=== PATIENT | female | born 1975 | race Caucasian/White ===

== ENCOUNTER 2021-03-25 08:37 | Outpatient (CLI) | payer MEDICAID, SELFPAY ==
[2021-03-25 08:44] VITALS: BP 116/71; PULSE 58; RESP 18; TEMP 36.9; O2SAT 100
[2021-03-25] MEDS: Omnipaque 240 MG/ML 50 ML BTL IJ (09:25)
[2021-03-25] MEDS: Bupivacaine 0.5% Pres-Free 10 ML VIAL IJ (09:25)
--- NOTE | 2021-03-25 09:29 | PDOC.PAIN_ITS ---
Pain Clinic Procedure Note Procedure Note Procedure Note: Lumbar/Sacral Medial Branch Blocks ZBIGNIEW NUNES has been referred to the [facility] for lumbar/sacral medial branch blocks. Pre-operative diagnosis: lumbar spondylosis Post-operative diagnosis: same as above COMMENTS: patient has axial back pain and some intermittent radiation down right anterior thigh. she was evaluated by Ms Nella Nevarez APRN in pain clinic and referred for diagnostic lumbar medial branch nerve block. Patient was interviewed and the medical record reviewed. There were no medical, pharmacologic, radiographic or other structural contraindications to attempting fluoroscopically guided local anesthetic lumbar/sacral medial branch blocks. Risks and expected side effects as well as potential benefit of the procedure were reviewed and voiced concerns addressed. The printed consent form was signed and witnessed. Standard time-out procedure was performed. Patient was placed in the prone position on the fluoroscopy table and automated blood pressure cuff and pulse oximeter applied. The skin entry points for approaching the anatomic target points of the segmental medial branches of bilateral L3, L4, L5-DR were identified with anfluoroscopy and marked. Following thorough Chlorhexadine preparation of the skin and draping and 1% lidocaine infiltration of the skin entry points and subcutaneous tissues, a 22 gauge spinal needle was placed under fluoroscopic guidance down on to the target point for each respective segmental medial branch.Position was confirmed in A/P, oblique and lateral views with 0.25ml of omnipaque 240. Coult be this method .5ml 0.5% Bupivacaine was injected . Vital signs were stable throughout the procedure and were as recorded in the docflowsheet by the nursing staff. Follow up plans and appointments were discussed and was instructed to keep careful note of how the usual pain was modified by these injections. Specifically was asked to keep a pain diary for the next 24 hours using a numeric pain scale of 0-10 and report these results at the follow-up visit. Post procedure instruction was given as documented in the nursing documentation and having met discharge criteria. Patient was discharged from the [facility]. Based on the medial branches blocked today, if the patient has adequate relief and we are able to proceed to radiofrequency ablation, the treatment should result in the denervation of the bilateral L4/5 and L5/S1. We would expect to denervate a total of 4 facets during the radiofrequency ablation. COMMENTS: VAS score 8 out of 10 pre-procedure and 7 out of 10 post-procedure. Maryellen Del Valle MD Pain Management CC: Juan Farr
--- NOTE | 2021-03-25 09:30 | DI.RAD_ITS ---
Exam(s) XR PAIN CLINIC LUMBAR SP 2V EXAM: XR PAIN CLINIC LUMBAR SP 2V CLINICAL HISTORY: Dx: Lumbar Spondylosis TECHNIQUE: 2D and realtime digital imaging was performed. CONTRAST MATERIAL: Refer to procedure report. COMPARISON: No exams were available for comparison FINDINGS: Fluoroscopy was provided for Dr. Del Valle during the performance of a lumbar medial branch block. Please refer to the procedure report for complete details. Ka,r=8.71 mGy IMPRESSION: RADIATION DOSE DELIVERED:
[2021-03-25 09:39] VITALS: BP 124/69; PULSE 61; RESP 14; O2SAT 100
== END 2021-03-25 08:38 | disposition home or self-care (01) ==
LOC: PC 08:37
PROVIDERS: PCP Internal Medicine; Visit Provider Internal Medicine
DX: M47.816 Spondylosis without myelopathy or radiculopathy, lumbar region (principal)
CPT/HCPCS: 64493; 64494; 72100; Q9967

== ENCOUNTER 2021-04-29 12:20 | Outpatient (CLI) | payer MEDICAID, SELFPAY ==
[2021-04-29 12:28] VITALS: PULSE 68; RESP 17; TEMP 37.3; O2SAT 99
--- NOTE | 2021-04-29 13:10 | DI.RAD_ITS ---
Exam(s) XR PAIN CLINIC LUMBAR SP 2V EXAM: XR PAIN CLINIC LUMBAR SP 2V CLINICAL HISTORY: Dx: Lumbar Spondylosis TECHNIQUE: 2D and realtime digital imaging was performed. CONTRAST MATERIAL: Refer to procedure report. COMPARISON: No exams were available for comparison FINDINGS: Fluoroscopy was provided for Dr. Del Valle during the performance of a lumbar medial branch block. Please refer to the procedure report for complete details. Ka,r=7.72 mGy IMPRESSION:
--- NOTE | 2021-04-29 13:17 | PDOC.PAIN_ITS ---
Pain Clinic Procedure Note Procedure Note Procedure Note: Lumbar/Sacral Medial Branch Blocks ZBIGNIEW NUNES has been referred to the [facility] for lumbar/sacral medial branch blocks. Pre-operative diagnosis: lumbar spondylosis Post-operative diagnosis: same as above COMMENTS: patient responded well to previous diagnostic lumbar medial branch nerve block. This is confirmatory medial branch nerve block. Patient was interviewed and the medical record reviewed. There were no medical, pharmacologic, radiographic or other structural contraindications to attempting fluoroscopically guided local anesthetic lumbar/sacral medial branch blocks. Risks and expected side effects as well as potential benefit of the procedure were reviewed and voiced concerns addressed. The printed consent form was signed and witnessed. Standard time-out procedure was performed. Patient was placed in the prone position on the fluoroscopy table and automated blood pressure cuff and pulse oximeter applied. The skin entry points for approaching the anatomic target points of the segmental medial branches of bilateral L3, L4, L5-DR were identified with anfluoroscopy and marked. Following thorough Chlorhexadine preparation of the skin and draping and 1% lidocaine infiltration of the skin e ntry points and subcutaneous tissues, a 22 gauge spinal needle was placed under fluoroscopic guidance down on to the target point for each respective segmental medial branch.Position was confirmed in A/P, oblique and lateral views with 0.25ml of omnipaque 240. Coult be this method .5ml 2% Lidocaine was injected. Vital signs were stable throughout the procedure and were as recorded in the docflowsheet by the nursing staff. Follow up plans and appointments were discussed and was instructed to keep careful note of how the usual pain was modified by these injections. Specifically was asked to keep a pain diary for the next 24 hours using a numeric pain scale of 0-10 and report these results at the follow-up visit. Post procedure instruction was given as documented in the nursing documentation and having met discharge criteria. Patient was discharged from the [facility]. Based on the medial branches blocked today, if the patient has adequate relief and we are able to proceed to radiofrequency ablation, the treatment should result in the denervation of the bilateral L4/5 and L5/S1. We would expect to denervate a total of 4 facets during the radiofrequency ablation. COMMENTS: VAS score 7 out of 10 pre-procedure and 5 out of 10 post-procedure. Maryellen Del Valle MD Pain Management CC: Juan Farr
[2021-04-29] MEDS: Omnipaque 240 MG/ML 50 ML BTL IJ (13:22)
[2021-04-29] MEDS: Lidocaine 2% Pres-Free 5 ML VIAL IJ (13:22)
[2021-04-29 13:23] VITALS: BP 111/70; PULSE 56; RESP 21; O2SAT 100
== END 2021-04-29 12:21 | disposition home or self-care (01) ==
PROVIDERS: PCP Family Medicine; Visit Provider Internal Medicine
DX: M47.816 Spondylosis without myelopathy or radiculopathy, lumbar region (principal)
CPT/HCPCS: 64493; 64494; 72100; Q9967

== ENCOUNTER 2021-06-10 12:51 | Outpatient (CLI) | payer MEDICAID, SELFPAY ==
--- NOTE | 2021-06-10 06:00 | DI.RAD_ITS ---
Exam(s) XR PAIN CLINIC LUMBAR SP 2V EXAM: XR PAIN CLINIC LUMBAR SP 2V CLINICAL HISTORY: DX: Lumbar Spondylosis. TECHNIQUE: Fluoroscopy was provided for the referring physician for guidance with performing injecti on procedure. COMPARISON: No exams were available for comparison FINDINGS: Please see procedure note for details. Fluoro time 85.3 seconds RADIATION DOSE DELIVERED: sejal Oliver=18.05 mGy
[2021-06-10 13:16] VITALS: BP 110/74; PULSE 57; RESP 14; TEMP 37.2; O2SAT 98
--- NOTE | 2021-06-10 13:32 | PDOC.PAIN_ITS ---
Pain Clinic Procedure Note Procedure Note Procedure Note: Bilateral Lumbar Radiofrequency with Coolief Machine PROCEDURE NOTE Date of Service: June 10, 2021 Patient: ZBIGNIEW NUNES Provider: Maryellen Del Valle MD Pre Operative Diagnosis: lumbar spondylosis Post Operative Diagnosis: same as above PROCEDURE: Radiofrequency Ablation of medial branches - bilateral L3, L4, L5-DR CHANDLERMELISSATEENA NUNES was brought into the fluoroscopy suite and positioned into the prone position on the fluoroscopy table and allowed to adjust to a position of comfort. A grounding pad was placed on the left thigh. The lumbar region was widely prepped with a chloraprep solution, allowed to air dry and draped in standard sterile surgical fashion. Local anesthesia was provided by 25mL of 1% lidocaine delivered with a 25g needle. A 17g 100mm radiofrequency introducer needle was placed to the planned anatomic targets guided with intermittent fluoroscopy with a perpendicular approach to terminally place at the junction of the superior articular process and the transverse process of the bilateral L3, L4, L5-DR and the base of the sacral ala on the bilateral for the L5 medial branch nerve. The stylets were removed and radiofrequency probes with a 4mm active tip were then inserted. Needle tip position of the probes was verified in the AP, oblique, and lateral views. At each site, the medial branch nerve was stimulated at 2 Hz to a maximum 1-2 volts determined to finalize safe needle and electrode placement. The patient was awake and responsive during this portion of the procedure. Each target was anesthetized with 2 mL of 2% lidocaine for anesthesia for lesioning and then each target was lesioned at 80 degrees Celsius for 2 minutes and 30 seconds. Tissue impedences were noted to be between 250 and 500 Ohms. Electrodes and needles were then removed and bandages placed over the needle placement sites, t he patient then returned to the supine position on a stretcher and transported to the recovery room without hemodynamic, neurologic, or allergic reactions. Fluoroscopic images were printed for hard copy recording and digitally archived. POST PROCEDURE EVALUATION: IMPRESSION: 1. during the right L3 and L4 testing, excellent multifus stimulation observed without any spread to right lower extremity, medial branch nerve was stimulated at 2Hz to maxium of 2 volts, patient denies any radiating right leg paresthesia or muscle twitching, then about 1 minute into the radiofrequency ablation, anne ent reported transient right lateral thigh pain which resolved within 30 seconds. 2. patient received 75mcg of IV fentanyl and 1.5mg of IV versed 3. post-lesioning, at each site, patient received 1cc of solution containing 0.3mg of 40mg/ml of depomedrol and 0.5% Bupivocaine 4. after completion of RFA, patient reports 10 out of 10 pain across her back - recommendation made to apply ice, a Rx for methocarbamol 500mg TID was sent to patient's preferred pharmacy 5. lengthy discussion with patient about post-RF discomfort, sunburn feeling across her back lasting for 4-6 weeks Follow up plans and appointments were discussed with the ZBIGNIEW . Post procedure instruction was given as documented in nursing documentation and having met discharge criteria, ZBIGNIEW was discharged from the [facility]. COMMENTS: No complications. F/U with our office as needed. I personally performed this entire procedure. Maryellen Del Valle MD Pain Management Attending Physician
[2021-06-10] MEDS: Lactated Ringers 1,000 ML 80 ML IV (13:42)
[2021-06-10] MEDS: fentaNYL 100 MCG/2 ML VIAL IVP ×3 (13:45→14:11)
[2021-06-10] MEDS: Midazolam 2 MG/2 ML VIAL IVP ×2 (13:46→14:05)
[2021-06-10 14:33] VITALS: BP 115/73; PULSE 55; RESP 13; O2SAT 100
[2021-06-10] MEDS: Lidocaine 2% Pres-Free 5 ML VIAL IJ (15:16)
[2021-06-10] MEDS: methylPREDNISolone ACETATE 40 MG/ML VIAL IJ (15:21)
[2021-06-10] MEDS: Lidocaine 1% Pres-Free 30 ML VIAL IJ (15:22)
[2021-06-10] MEDS: Bupivacaine 0.5% Pres-Free 10 ML VIAL IJ (15:22)
== END 2021-06-10 12:52 | disposition home or self-care (01) ==
LOC: PC 12:52
PROVIDERS: PCP Family Medicine; Visit Provider Internal Medicine
DX: M47.816 Spondylosis without myelopathy or radiculopathy, lumbar region (principal)
CPT/HCPCS: 64635; 64636; 72100; J1030; J2250; J3010

== ENCOUNTER 2022-03-25 07:26 | Outpatient (CLI) | payer MEDICAID, SELFPAY ==
--- NOTE | 2022-03-25 06:00 | DI.RAD_ITS ---
Exam(s) XR PAIN CLINIC LUMBAR SP 2V EXAM: XR PAIN CLINIC LUMBAR SP 2V CLINICAL HISTORY: Lumbar spondylosis. TECHNIQUE: Fluoroscopy was provided for the referring physician for guidance with performing pain cl inic injection procedure. COMPARISON: No exams were available for comparison FINDINGS: Please see procedure note for details. Fluoro time: 101.8 seconds RADIATION DOSE DELIVERED: sejal Oliver=20.0 mGy
[2022-03-25 07:43] VITALS: BP 103/64; PULSE 60; RESP 20; TEMP 36.8; O2SAT 98
[2022-03-25] MEDS: fentaNYL 100 MCG/2 ML VIAL IVP ×2 (08:24→08:43)
[2022-03-25] MEDS: Midazolam 2 MG/2 ML VIAL IVP (08:25)
[2022-03-25] MEDS: methylPREDNISolone ACETATE 40 MG/ML VIAL IJ (09:16)
[2022-03-25] MEDS: Lidocaine 2% Pres-Free 5 ML VIAL IJ (09:16)
[2022-03-25] MEDS: Bupivacaine 0.5% Pres-Free 10 ML VIAL IJ (09:16)
[2022-03-25 09:17] VITALS: BP 136/86; PULSE 68; RESP 16; O2SAT 99
--- NOTE | 2022-03-25 09:21 | PDOC.PAIN ---
Pain Clinic Procedure Note Procedure Note Procedure Note: Bilateral Lumbar Radiofrequency with Coolief Machine PROCEDURE NOTE Date of Service: March 25, 2022 Patient: ZBIGNIEW KIRKPATRICK Provider: Ti Noyola DO, MPH Pre Operative Diagnosis: Lumbosacral Spondylosis without Myelopathy Post Operative Diagnosis: Same Pre procedure pain; VAS= 8/10 PROCEDURE: Radiofrequency Ablation of medial branches - Bilateral L3 L4 L5 and lateral branches of bilateral S1. ZBIGNIEW KIRKPATRICK was brought into the fluoroscopy suite and positioned into the prone position on the fluoroscopy table and allowed to adjust to a position of comfort. A grounding pad was placed on the right thigh. The lumbar region was widely prepped with a chloraprep solution, allowed to air dry and draped in standard sterile surgical fashion. Local anesthesia was provided by 8 mL of 2% Lidocaine delivered with a 25g needle. A 17g 100 mm radiofrequency introducer needle was placed to the planned anatomic targets guided with intermittent fluoroscopy with a perpendicular approach to terminally place at the junction of the superior articular process and the transverse process of the bilateral L4 L5, the base of the sacral ala on the bilateral for the L5 medial branch nerve and the area between base of the sacral ala to the S1 foramen bilaterally. The stylets were removed and radiofrequency probes with a 4mm active tip were then inserted. Needle tip position of the probes was verified in the AP, oblique, and lateral views. At each site, the medial branch nerve was stimulated at 2 Hz to a maximum 1-2 volts determined to finalize safe needle and electrode placement. The patient was awake and responsive during this portion of the procedure. Each target was anesthetized with 1-2 mL of 2% Lidocaine for anesthesia for lesioning and then each target was lesioned at 80 degrees Celsius for 2 minutes and 30 seconds. Tissue impedences were noted to be between 250 and 500 Ohms. Electrodes and needles were then removed and bandages placed over the needle placement sites, the patient then returned to the supine position on a stretcher and transported to the recovery room without hemodynamic, neurologic, or allergic reactions. Fluoroscopic images were printed for hard copy recording and digitally archived. POST PROCEDURE EVALUATION: IMPRESSION: 1. Summary of procedure. Medication given is documented in the MAR. 2. The patient will be contacted in 1-3 weeks 3. Estimated Blood Loss: <5 mls 4. Fluoroscopy time: Documented in the EMR. Follow up plans and appointments were discussed with the ZBIGNIEW . Post procedure instruction was given as documented in nursing documentation and having met discharge criteria, ZBIGNIEW was discharged from the [facility]. COMMENTS: No apparent complications. Post-procedure pain: VAS= 4/10. F/U with our office as needed. I personally performed this entire procedure. Ti Noyola DO, MPH Attending Physician Pain Management
== END 2022-03-25 07:27 | disposition home or self-care (01) ==
PROVIDERS: PCP Family Medicine; Visit Provider Preventive Medicine Occupational Medicine
DX: M47.817 Spondylosis without myelopathy or radiculopathy, lumbosacral region (principal)
CPT/HCPCS: 64635 ×2; 64636; 72100; J1030; J2250; J3010

== ENCOUNTER 2023-05-12 09:31 | Outpatient (CLI) | payer MEDICAID, SELFPAY ==
--- NOTE | 2023-05-12 06:00 | DI.RAD_ITS ---
Exam(s) XR PAIN CLINIC LUMBAR SP 2V EXAM: XR PAIN CLINIC LUMBAR SP 2V CLINICAL HISTORY: Dx: Lumbar Spondylosis TECHNIQUE: 2D and realtime digital imaging was performed. CONTRAST MATERIAL: Refer to procedure report. COMPARISON: No exams were available for comparison FINDINGS: Fluoroscopy was provided for Dr. Noyola during the performance of a lumbar radiofrequency ablation. P lease refer to the procedure report for complete details. Ka,r=12.8 mGy IMPRESSION:
[2023-05-12 09:58] VITALS: BP 104/71; PULSE 79; RESP 20; TEMP 36.8; O2SAT 99
[2023-05-12] MEDS: Lactated Ringers 500 ML 80 ML IV (10:35)
[2023-05-12] MEDS: fentaNYL 100 MCG/2 ML VIAL IVP ×2 (10:35→10:45)
[2023-05-12] MEDS: Midazolam 2 MG/2 ML VIAL IVP (10:35)
[2023-05-12 11:10] VITALS: BP 102/76; PULSE 89; RESP 20; O2SAT 99
[2023-05-12] MEDS: Lidocaine 2% Pres-Free 5 ML VIAL IJ (11:24)
[2023-05-12] MEDS: methylPREDNISolone ACETATE 40 MG/ML VIAL IJ (11:26)
[2023-05-12] MEDS: Bupivacaine 0.5% Pres-Free 10 ML VIAL IJ (11:26)
--- NOTE | 2023-05-12 11:57 | PDOC.PAIN_ITS ---
Date of service: 05/12/23 Time of Service: 11:57 Pain Managment Procedure Note Procedure Note Procedure Note: PROCEDURE NOTE Lumbar Radiofrequency Ablation Bilateral Lumbar Radiofrequency with Avanos Machine Date of Service: May 12, 2023 Patient: ZBIGNIEW KIRKPATRICK Provider: Ti Noyola DO, MPH Pre Operative Diagnosis: Lumbosacral Spondylosis without Myelopathy Post Operative Diagnosis: Same Pre procedure pain; VAS= 8/10 Comment: She had her last RFA at these levels on 03/25/22 and had >8 months of >50% pain relief and improved functioning. PROCEDURE: Radiofrequency Ablation of medial branches - bilateral L3, L4, L5 and lateral branches of bilateral S1. ZBIGNIEW was brought into the fluoroscopy suite and positioned into the prone position on the fluoroscopy table and allowed to adjust to a position of comfort. A grounding pad was placed on the left abdomen. The lumbar region was widely prepped with a chloraprep solution, allowed to air dry and draped in standard sterile surgical fashion. Local anesthesia was provided by 5 mL of 2 % Lidocaine delivered with a 25g needle. A 17g 100 mm radiofrequency introducer needle was placed to the planned anatomic targets guided with intermittent fluoroscopy with a perpendicular approach to terminally place at the junction of the superior articular process and the transverse process of the bilateral L4, L5, the base of the sacral ala on the bilateral for the L5 medial branch nerve and the area between base of the sacral ala to the S1 foramen bilaterally. The stylets were removed and radiofrequency probes with a 4mm active tip were then inserted. Needle tip position of the probes was verified in the AP, oblique, and lateral views. At each site, the medial branch nerve was stimulated at 2 Hz to a maximum 1-2 volts determined to finalize safe needle and electrode placement. The patient was awake and responsive during this portion of the procedure. Each target was anesthetized with 1-2 mL of 2 % Lidocaine for anesthesia for lesioning and then each target was lesioned at 80 degrees Celsius for 2 minutes and 30 seconds. Tissue impedances were noted to be between 250 and 500 Ohms. Electrodes and needles were then removed and bandages placed over the needle placement sites, the patient was observed and was without hemodynamic, neurologic, or allergic reactions. Fluoroscopic images were digitally archived. POST PROCEDURE EVALUATION: IMPRESSION: 1. Summary of procedure. Medication given is documented in the MAR. 2. RTC as needed. Follow up plan: Patient to contact [facility] needed.? This procedure may be repeated if the patient achieves at least 50% improvement in pain/function for at least 6 months. 3. Estimated Blood Loss: <5 mls 4. Fluoroscopy time: Documented in the EMR. Follow up plans and appointments were discussed with the ZBIGNIEW. Post procedure instruction was given as documented in nursing documentation and having met discharge criteria, ZBIGNIEW was discharged from the [facility]. COMMENTS: No apparent complications. Post-procedure pain: VAS= 2/10. I personally completed the entire procedure. TI NOYOLA DO, MPH ABPM&R - Subspecialty board certification in Pain Medicine [facility] [facility]
== END 2023-05-12 09:32 | disposition home or self-care (01) ==
LOC: PC 09:31
PROVIDERS: PCP Family Medicine; Visit Provider Preventive Medicine Occupational Medicine
DX: M47.817 Spondylosis without myelopathy or radiculopathy, lumbosacral region (principal)
CPT/HCPCS: 64635; 64636; 72100; J1030; J2250; J3010

== ENCOUNTER 2024-01-26 12:39 | Outpatient (CLI) | payer MEDICAID, SELFPAY ==
--- NOTE | 2024-01-26 06:00 | DI.RAD_ITS ---
Exam(s) XR PAIN CLINIC LUMBAR SP 2V EXAM: XR PAIN CLINIC LUMBAR SP 2V CLINICAL HISTORY: DX: Bilateral Lumbar spondylosis. TECHNIQUE: Fluoroscopy was provided for the referring physician for guidance with performing pain cl inic injection procedure. COMPARISON: No exams were available for comparison FINDINGS: Please see procedure note for details. Fluoro time: 63.1 seconds RADIATION DOSE DELIVERED: sejal Oliver=9.87 mGy
[2024-01-26 12:57] VITALS: BP 113/78; PULSE 55; RESP 20; TEMP 36.6; O2SAT 99
--- NOTE | 2024-01-26 14:00 | PDOC.PAIN ---
Date of service: 01/26/24 Time of Service: 14:00 Pain Managment Procedure Note Procedure Note Procedure Note: PROCEDURE NOTE BILATERAL LUMBAR RADIOFREQUENCY ABLATION Date of Service: January 26, 2024 Patient:? ZBIGNIEW KIRKPATRICK? Provider:? Ti Noyola DO, MPH ZBIGNIEW KIRKPATRICK has been [facility] to the [facility] for Bilateral Lumbar Radiofrequency Ablation with the [email or web address] Machine.? Pre Operative Diagnosis: Lumbosacral Spondylosis without Myelopathy Post Operative Diagnosis: Same Pre procedure pain; VAS= 7/10 Comments: She last had this procedure on 05/12/23 and had >7 months of >50% pain relief. PROCEDURE: Radiofrequency Ablation of medial branches - bilateral L3, L4, L5 and lateral branches of bilateral S1. BRIGHTwas interviewed and the medical record was reviewed.? There were no medical, pharmacologic, radiographic or other structural contraindications to attempting fluoroscopically guided BILATERAL Lumbar Radiofrequency Ablation.?Risks and expected side effects as well as potential benefit of the procedure were reviewed with ZBIGNIEW, and the patient's voiced concerns were addressed.? The printed consent form was signed.? Standard time-out procedure was performed. ZBIGNIEW was brought into the fluoroscopy suite and positioned into the prone position on the fluoroscopy table and allowed to adjust to a position of comfort. A grounding pad was placed on the left abdomen. The sterile field was prepared using chlorhexidine preparation of the skin and sterile draping. Local anesthesia superficial and deep was provided by local infiltration of 2% lidocaine. A 17g 100 mm radiofrequency introducer needle was placed to the planned anatomic targets guided with intermittent fluoroscopy with a perpendicular approach to terminally place at the junction of the superior articular process and the transverse process of the bilateral L4, L5, the base of the sacral ala on the bilateral for the L5 medial branch nerve and the area between base of the sacral ala to the S1 foramen bilaterally. The stylets were removed and radiofrequency probes with a 4mm active tip were then inserted. Needle tip position of the probes was verified in the AP, oblique, and lateral views. At each site, the medial branch nerve was stimulated at 2 Hz to a maximum 1-2 volts determined to finalize safe needle and electrode placement. The patient was awake and responsive during this portion of the procedure. Each target was anesthetized with 1-2 mL of 2 % Lidocaine for anesthesia for lesioning and then each target was lesioned at 80 degrees Celsius for 2 minutes and 30 seconds. I next injected 0.25 cc of Depomedrol (40mg/cc) followed by 1 cc of 0.5 cc of 0.5% Bupivacaine. Tissue impedances were noted to be between 250 and 500 Ohms. There was no unusual discomfort expressed by ZBIGNIEW. The needles were withdrawn without difficulty and bandages placed over the needle placement sites, the patient was observed and was without hemodynamic, neurologic, or allergic reactions. Fluoroscopic images were digitally archived. POST PROCEDURE EVALUATION: IMPRESSION: 1. Summary of procedure. Medication given is documented in the MAR. 2. Follow up plan: ZBIGNIEW to contact [facility] as needed.?This procedure may be repeated if the patient achieves at least 50% improvement in pain/function for at least 6 months. 3. Estimated Blood Loss: <5 mls 4. Fluoroscopy time: Documented in the EMR. Follow up plans and appointments were discussed with the ZBIGNIEW. Post procedure instruction was given as documented in nursing documentation and having met discharge criteria, ZBIGNIEW was discharged from the [facility]. COMMENTS: No apparent complications. Post-procedure pain: VAS= 1/10. I personally completed the entire procedure. TI NOYOLA DO, MPH ABPM&R - Subspecialty board certification in Pain Medicine [facility]
[2024-01-26] MEDS: Lactated Ringers 500 ML 80 ML IV (14:07)
[2024-01-26] MEDS: Midazolam 2 MG/2 ML VIAL IVP (14:08)
[2024-01-26] MEDS: fentaNYL 100 MCG/2 ML VIAL IVP (14:08)
[2024-01-26] MEDS: Lidocaine 2% Pres-Free 5 ML VIAL IJ (14:11)
[2024-01-26] MEDS: Bupivacaine 0.5% Pres-Free 10 ML VIAL IJ (14:12)
[2024-01-26] MEDS: methylPREDNISolone ACETATE 40 MG/ML VIAL IJ (14:12)
[2024-01-26] MEDS: Nerve Block Tray 1 EACH MC (14:13)
[2024-01-26 14:14] VITALS: BP 127/86; PULSE 57; RESP 10; O2SAT 100
== END 2024-01-26 12:40 | disposition home or self-care (01) ==
LOC: PC 12:40
PROVIDERS: PCP Family Medicine; Visit Provider Preventive Medicine Occupational Medicine
DX: M47.817 Spondylosis without myelopathy or radiculopathy, lumbosacral region (principal)
CPT/HCPCS: 123; 64635; 64636; 72100; 00123; J0665; J1030; J2250; J3010

== ENCOUNTER 2024-08-10 07:10 | Outpatient (CLI) | payer BC, SELFPAY ==
[2024-08-10] VITALS (10 sets, daily range): BP systolic 110–141; BP diastolic 68–81; PULSE 46–69; RESP 10–20; TEMP 36.7; O2SAT 96–100
--- NOTE | 2024-08-10 06:00 | DI.RAD_ITS ---
Exam(s) XR PAIN CLINIC LUMBAR SP 2V EXAM: XR PAIN CLINIC LUMBAR SP 2V CLINICAL HISTORY: DX: Lumbar spondylosis. TECHNIQUE: Fluoroscopy was provided for the referring physician for guidance with performing pain cl inic injection procedure. COMPARISON: No exams were available for comparison FINDINGS: Please see procedure note for details. Fluoro time: 59.8 seconds RADIATION DOSE DELIVERED: Benitor=10.4 mGy
[2024-08-10] MEDS: fentaNYL 100 MCG/2 ML VIAL IVP ×2 (08:15→08:40)
[2024-08-10] MEDS: Midazolam 2 MG/2 ML VIAL IVP (08:15)
[2024-08-10] MEDS: Lidocaine 2% Multi-Dose 20 ML VIAL IJ (09:04)
[2024-08-10] MEDS: Bupivacaine 0.5% Pres-Free 10 ML VIAL IJ (09:05)
[2024-08-10] MEDS: methylPREDNISolone ACETATE 40 MG/ML VIAL IJ (09:06)
[2024-08-10] MEDS: Nerve Block Tray 1 EACH MC (09:06)
--- NOTE | 2024-08-10 09:43 | PDOC.PAIN ---
Date of service: 08/10/24 Time of Service: 09:43 Pain Managment Procedure Note Procedure Note Procedure Note: PROCEDURE NOTE BILATERAL LUMBAR RADIOFREQUENCY ABLATION Date of Service: August 10, 2024 Patient:? ZBIGNIEW KIRKPATRICK? Provider:? Ti Noyola DO, MPH ZBIGNIEW KIRKPATRICK [facility] Bilateral Lumbar Radiofrequency Ablation with the Engine [employer] Machine.? Pre Operative Diagnosis: Lumbosacral Spondylosis without Myelopathy Post Operative Diagnosis: Same Pre procedure pain; VAS= 8/10 Comments: She last had this procedure on 01/26/24 with 6 months of >50% pain relief. PROCEDURE: Radiofrequency Ablation of medial branches - bilateral L3, L4, L5 and lateral branches of bilateral S1. BRIGHTwas interviewed and the medical record was reviewed.? There were no medical, pharmacologic, radiographic or other structural contraindications to attempting fluoroscopically guided BILATERAL Lumbar Radiofrequency Ablation.?Risks and expected side effects as well as potential benefit of the procedure were reviewed with ZBIGNIEW, and the patient's voiced concerns were addressed.? The printed consent form was signed.? Standard time-out procedure was performed. ZBIGNIEW was brought into the fluoroscopy suite and positioned into the prone position on the fluoroscopy table and allowed to adjust to a position of comfort. A grounding pad was placed on the left abdomen. The sterile field was prepared using chlorhexidine preparation of the skin and sterile draping. Local anesthesia superficial and deep was provided by local infiltration of 2% lidocaine. A 17g 100 mm radiofrequency introducer needle was placed to the planned anatomic targets guided with intermittent fluoroscopy with a perpendicular approach to terminally place at the junction of the superior articular process and the transverse process of the bilateral L4, L5, the base of the sacral ala on the bilateral for the L5 medial branch nerve and the area between base of the sacral ala to the S1 foramen bilaterally. The stylets were removed and radiofrequency probes with a 4mm active tip were then inserted. Needle tip position of the probes was verified in the AP, oblique, and lateral views. At each site, the medial branch nerve was stimulated at 2 Hz to a maximum 1-2 volts determined to finalize safe needle and electrode placement. The patient was awake and responsive during this portion of the procedure. Each target was anesthetized with 1-2 mL of 2 % Lidocaine for anesthesia for lesioning and then each target was lesioned at 80 degrees Celsius for 2 minutes and 30 seconds. Tissue impedances were noted to be between 250 and 500 Ohms. I then injected 1/4 cc of Depomedrol (40 mg/cc) followed by 1 cc of 0.5% Bupivacaine at each segmental sensory nerve. There was no unusual discomfort expressed by ZBIGNIEW. The needles were withdrawn without difficulty and bandages placed over the needle placement sites, the patient was observed and was without hemodynamic, neurologic, or allergic reactions. Fluoroscopic images were digitally archived. POST PROCEDURE EVALUATION: IMPRESSION: 1. Summary of procedure. Medication given is documented in the MAR. 2. Follow up plan: ZBIGNIEW to contact [facility] as needed.?This procedure may be repeated if the patient achieves at least 50% improvement in pain/function for at least 6 months. 3. Estimated Blood Loss: <5 mls 4. Fluoroscopy time: Documented in the EMR. Follow up plans and appointments were discussed with the ZBIGNIEW. Post procedure instruction was given as documented in nursing documentation and having met discharge criteria, ZBIGNIEW was discharged from the [facility]. COMMENTS: No apparent complications. Post-procedure pain: VAS= 2/10. I personally completed the entire procedure. TI NOYOLA DO, MPH ABPM&R - Subspecialty board certification in Pain Medicine [facility]
== END 2024-08-10 07:11 | disposition home or self-care (01) ==
LOC: PC 07:10
PROVIDERS: PCP Family Medicine; Visit Provider Preventive Medicine Occupational Medicine
DX: M47.817 Spondylosis without myelopathy or radiculopathy, lumbosacral region (principal)
CPT/HCPCS: 64635; 64636; 72100; J0665; J1010; J2003; J2250; J3010

== ENCOUNTER 2025-01-12 13:16 | Emergency (ER) | payer BC, MEDICAID, SELFPAY ==
--- NOTE | 2025-01-12 13:15 | RT.EKG_ITS ---
APPROVED REPORT Exam: Resting ECG Reason for Exam: dizziness Patient Location: E HR:52 bpm ECG Measurements Heart Rate 52 AXIS KS 139 P 73 QRSd 94 QRS -1 QT 420 T 70 QTc 390 Conclusion Sinus bradycardia...rate< 60 No STEMI
[2025-01-12 13:25] VITALS: BP 122/62; PULSE 56; RESP 14; TEMP 36.6; O2SAT 98
[2025-01-12] MEDS: Ondansetron O.D.T. 4 MG TABEF PO (15:36)
--- NOTE | 2025-01-12 16:07 | IN_ITS ---
PT Notes Visit Reasons: Dizziness PT Emergency Room Vertigo Evaluation Date: 01/12/25 Referring Doctor: SONG Dewey PT Orders: dizziness Precautions: standard Patient Profile/Admitting Diagnosis: Patient is a 49 year old female with PT orders for evaluation of dizziness. Social History: Independent 49 year old female. No AD. SUBJECTIVE:Ame presents with a 2 day history of room-spinning dizziness when getting in/out of bed. States that symptoms last approx 30-60 seconds, with room-spinning sensation and nausea, then resolve until she moves again. Has family member present who reports seeing her eyes roll around in her head during episodes. Denies hearing changes, tinnitus, balance impairments, recent illness, vision changes. Symptoms: Onset of symptoms: 2 days ago Trauma: No Exacerbating Factors: getting in/out of bed, lying on left side Relieving Factors: lying still Types of Dizziness: room spinning Headaches: No Balance Deficits: No Hearing Loss: No Tinnitus: No OBJECTIVE: General Observation: Resting in bed, no lines. Ill appearing, holding emesis bag. Mental Status: A&Ox3. Appropriate historian. Pain: denies ROM: Cervical ROM WFL and non-symptom provoking Vertebral Artery Screening: Negative Sustained End Range of Motion: (-) NEUROLOGICAL: Fine Motor: normal Coordination: intact Rhomberg: normal KANDI Sensory Organization Performance Test for Vestibulopathy: (-) for unilateral vestibular dysfunction Position 1 (Rhomberg): normal Position 2 (Rhomberg, eyes closed): sway Position 3 (modified tandem): normal Position 4 (modified tandem, eyes closed): sway Position 5 (stand on foam): unable to perform due to lack of equipment Position 6 (stand on foam, eyes closed): unable to perform due to lack of equipment Position 7 (Fukuda): (-) OCCULOMOTOR Visual Tracking: normal Head Thrust: normal HINTS testing: Test of Skew: normal Head thrust: normal Spontaneous nystagmus: none Positional Testing for BPPV: Hallpike Testing (BBPV-PC): negative to the right, (+) to the left, with left torsional nystagmus x 20 seconds Lateral Body position (BPPV-HC): (-) Westhoff and Lean (BPPV-HC): (-) BED MOBILITY/TRANSFERS: Supine-sit: independent Sit-supine: independent Sit-Stand: independent Stand-sit: independent Bed-Chair: independent Chair-bed:independent GAIT: Ambulates 40' independently, without ataxia BALANCE: Static sitting: normal Dynamic Sitting: normal Static Standing: normal Dynamic Standing: good SPECIAL TESTS: Mobility Limitations Standardized Measure: [facility] AM -PAC ?6 clicks? Basic Mobility Inpatient Short Form: raw score: 24 standardized score: 61.14 CMS modifier: 0% impairment INFORMED CONSENT/EDUCATION: Pt instructed in purpose of PT Consult and plan of care. Educated on nature of BPPV and expected outcomes from treatment. Treatment: Initial Evaluation: 96515 Neuromuscular Re-education (17301m2): Treated with left Luis Manuel maneuver x 2 reps, with 90 second holds in each position. Asymptomatic on second rep. PATIENT EDUCATION PRECAUTIONS POST TREATMENT: No Bending over or rapid head movements HOB elevated > 45 degrees Drink plenty of water ASSESSMENT: Patient is a 49 year old female referred to physical therapy servi imtiaz with diagnosis of dizziness. Patient presents with clinical signs and symptoms consistent with left BPPV-PC, with good response to treatment with Luis Manuel maneuver. She demonstrates safe and independent mobility, and is appropriate for discharge home once medically stable, with referral for outpatient PT for vestibular rehab to address any residual symptoms. She currently demonstrates the following impairment level findings: 1. (+) Keisha-Hallpike to left 2. (-) signs for unilateral vestibular dysfunction 3. (-) signs for central process Impairments are contributing to the following functional limitations: 1. dizziness when getting in/out of bed 2. AMPAC score 0% Patient is assessed as Low 86914 complexity based on the following: History: As above, without complicating factors Examination: as above Presentation: stable Decision Making: low complexity PLAN OF CARE/TREATMENT PLAN: Patient seen for consultation and treatment only in ED. Recommend discharge home once appropriate with consideration of outpatient PT for vestibular rehabilitation. DISCHARGE RECOMMENDATIONS: Home, outpatient PT (vestibular rehab) TREATMENT TIME/MINUTES/CODES: 5826-3539 ([id number]) Thank you for this referral. Please do not hesitate to contact me with any questions or concerns regarding this patient's POC. 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
--- NOTE | 2025-01-12 16:08 | W.ED.GENAD ---
Discharge Plan Disposition Patient Disposition: Home Condition: Stable Discharge Details Clinical Impression: Benign paroxysmal positional vertigo Primary Care Provider: Brent Farfan ED Provider: Mary Kate Burroughs Home Meds and New Rx's Prescriptions: New meclizine 25 mg tablet 25 mg PO TID Qty: 10 0RF meclizine 25 mg tablet 25 mg PO TID Qty: 10 0RF Continued sumatriptan succinate 100 mg Tablet 100 mg PO BID PRN fexofenadine [Flor Allergy] 180 mg tablet 180 mg PO DAILY Discharge Instructions Instructions: Vestibular Exercises, Vertigo ED Additional Instructions: Take the meclizine as needed for dizziness and nausea Regular fluids Please return should you develop persistent or worsening symptoms or should any new concerns arise Referrals: Long Woodson,[facility] [OTHER] - HPI General Date/Time Provider Initiated Documentation: 01/12/25 13:38. HPI Narrative: This 49-year-old female who is otherwise healthy presents with dizziness predominantly with laying flat that came on abruptly this morning. Denies history of similar symptoms in the past. Has had some fullness to her right ear with congestion denies any headache has been ambulatory since the event occurred Related Data Home Medications ?Medication ?Instructions ?Recorded ?Confirmed sumatriptan succinate 100 mg tablet 100 mg PO BID PRN 11/01/20 01/12/25 fexofenadine 180 mg tablet 180 mg PO DAILY 08/10/24 01/12/25 (Flor Allergy) meclizine 25 mg tablet 25 mg PO TID #10 tabs 01/12/25 meclizine 25 mg tablet 25 mg PO TID #10 tabs 01/12/25 Previous Rx's ?Medication ?Instructions ?Recorded meclizine 25 mg tablet 25 mg PO TID #10 tabs 01/12/25 meclizine 25 mg tablet 25 mg PO TID #10 tabs 01/12/25 Allergies Allergy/AdvReac Type Severity Reaction Status Date / Time acetaminophen (From Percocet) Allergy Unknown Respiratory Unverified 01/12/25 13:28 Distress ibuprofen Allergy Unknown respiratory Unverified 01/12/25 13:28 distress naproxen Allergy Unknown respiratory Unverified 01/12/25 13:28 distress NSAIDS (Non-Steroidal Allergy Unknown Respiratory Unverified 01/12/25 13:28 Anti-Inflamma Distress oxycodone (From Percocet) Allergy Unknown Respiratory Unverified 01/12/25 13:28 Distress Penicillins Allergy Unknown Respiratory Unverified 01/12/25 13:28 Distress General Stated Complaint: Dizzy/Sync KIET: 3 Exam Narrative Exam Narrative: Alert and oriented female x 4, cranial nerves II through XII intact pupils equal round reactive to light and accommodation, no obvious nystagmus on exam lungs clear to auscultation cardiac rate rhythm regular ambulatory steady gait, negative [id number] negative heel petersen Course Vital Signs Vital signs: Vital Signs Temperature 36.6 C 01/12/25 13:25 Pulse 56 L 01/12/25 13:25 Respiratory Rate 14 01/12/25 13:25 Blood Pressure 122/62 01/12/25 13:25 Pulse Oximetry 98 01/12/25 13:25 Temperature 36.6 C 01/12/25 13:25 Temperature Source Oral 01/12/25 13:25 Pulse 56 L 01/12/25 13:25 Respiratory Rate 14 01/12/25 13:25 Blood Pressure 122/62 01/12/25 13:25 Blood Pressure Position Sitting 01/12/25 13:25 Pulse Oximetry 98 01/12/25 13:25 Oxygen Delivery Method Room Air 01/12/25 13:25 Oxygen Flow Rate 0 01/12/25 13:25 Pain Level 0 01/12/25 13:25 Lab/Test Results Lab/Test Results: Laboratory Tests Range/Units 01/12/25 13:58 WBC Cancelled RBC Cancelled Hgb Cancelled Hct Cancelled MCV Cancelled MCH Cancelled MCHC Cancelled RDW Cancelled Plt Count Cancelled MPV Cancelled Immature Gran % Cancelled Neutrophils % Cancelled Band Neutrophils % Cancelled Lymphocytes % Cancelled Atypical Lymphs % Cancelled Monocytes % Cancelled Eosinophils % Cancelled Basophils % Cancelled Metamyelocytes % Cancelled Myelocytes % Cancelled Promyelocytes % Cancelled Other Cells % Cancelled Nucleated RBC % Cancelled Absolute Neutrophils Cancelled Absolute Lymphocytes Cancelled Absolute Monocytes Cancelled Absolute Eosinophils Cancelled Absolute Basophils Cancelled RBC Morphology Cancelled Polychromasia Cancelled Hypochromasia Cancelled Poikilocytosis Cancelled Basophilic Stippling Cancelled Anisocytosis Cancelled Microcytosis Cancelled Macrocytosis Cancelled Spherocytes Cancelled Tear Drop Cells Cancelled Ovalocytes Cancelled Stomatocytes Cancelled [place] Bodies Cancelled Dawson Cells/Echinocytes Cancelled Acanthocytes (Spur) Cancelled Schistocytes Cancelled Sodium Cancelled Potassium Cancelled Chloride Cancelled Carbon Dioxide Cancelled Anion Gap Cancelled BUN Cancelled Creatinine Cancelled Est GFR (CKD-EPI 2020) Cancelled Glucose Cancelled Calcium Cancelled Magnesium Cancelled Total Bilirubin Cancelled AST Cancelled ALT Cancelled Alkaline Phosphatase Cancelled Total Protein Cancelled Albumin Cancelled Medical Decision Making 49-year-old female presenting with likely BPPV given exam findings, Luis Manuel was performed approximately 6 times taking approximately 30 minutes of time and PT was then called to do an assessment she is now feeling marked improvement and she is nauseous otherwise she is ambulatory and no longer expressing dizziness, her symptoms are consistent with BPPV and she will follow-up with her primary care physician in the outpatient setting I did consider central etiology of Patient's complaints but her exam is inconsistent with this finding Quality:SDOH Health Related Social Needs: No Data to Display PFSH All Active Problems (Updated 01/12/25 @ 16:04 by SONG Dewey) Benign paroxysmal positional vertigo (Acute) Medical History (Updated 01/12/25 @ 16:04 by SONG Dewey) Motion sickness 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 Sleep apnea Low back pain IBS (irritable bowel syndrome) with diarrhea Migraine Claustrophobia Surgical History H/O sinus surgery S/P shoulder surgery S/P colonoscopy History of esophagogastroduodenoscopy (EGD) S/P knee surgery arthroscopic surgery on both knees- 3 total S/P cholecystectomy S/P oophorectomy S/P hysterectomy S/P tubal ligation S/P section Social History (Updated 11/12/20 @ 09:48 by Audrey De Anda) Smoking/Tobacco Use Status: Never Smoking risk assessment performed?: Yes Alcohol Intake: never Drug use: Never Substance use type: does not use Household members: children Housing: house Number of Children: 2 current occupation: [employer] What type of physical activity do you participate in: walking and independent ambulation Do you feel safe at home: Yes Do you feel safe in your relationship?: Yes
[2025-01-12 21:01] VITALS: BP 122/62; PULSE 56; RESP 14; RESP 15; TEMP 36.6; O2SAT 98
== END 2025-01-12 16:19 | disposition home or self-care (01) ==
PROVIDERS: Emergency Provider Physician Assistant; PCP Family Medicine
DX: R42 Dizziness and giddiness (principal)
CPT/HCPCS: 80053; 93005; 97112; 97161; 99283; 83735; 85025; 93010

== ENCOUNTER 2025-03-22 11:53 | Outpatient (CLI) | payer BC, MEDICAID, SELFPAY ==
--- NOTE | 2025-03-22 06:00 | DI.RAD_ITS ---
Exam(s) XR PAIN CLINIC LUMBAR SP 2V EXAM: XR PAIN CLINIC LUMBAR SP 2V CLINICAL HISTORY: DX: Lumbar Radiculopathy TECHNIQUE: 2D and realtime digital imaging was performed. CONTRAST MATERIAL: Refer to procedure report. COMPARISON: No exams were available for comparison FINDINGS: Fluoroscopy was provided for Dr. Noyola during the performance of a lumbar epidural steroid injection. Please refer to the procedure report for complete details. Ka,r=4.67 mGy IMPRESSION: RADIATION DOSE DELIVERED: 0.0 0.0 0
[2025-03-22 11:59] VITALS: BP 111/66; PULSE 83; RESP 20; TEMP 36.6; O2SAT 99
[2025-03-22 12:12] VITALS: PULSE 72; PULSE 73; RESP 24; O2SAT 98
[2025-03-22 12:13] VITALS: BP 108/69; PULSE 73; PULSE 75; RESP 15; O2SAT 99
[2025-03-22 12:16] VITALS: BP 110/90; PULSE 70; RESP 14; O2SAT 98
--- NOTE | 2025-03-22 12:21 | PDOC.PAIN_ITS ---
Date of service: 03/22/25 Time of Service: 12:21 Pain Managment Procedure Note Procedure Note Procedure Note: PROCEDURE NOTE LUMBAR EPIDURAL STEROID INJECTION Date of Service: March 22, 2025 Patient:Ame Aguila? Provider: Ti Noyola DO, MPH Ame Roman has been referred to the [facility] for a lumbar epidural steroid injection. Pre-operative diagnosis: Lumbosacral Radiculopathy ICD-10 M54.16 Post-operative diagnosis: Same Pre-Procedure Pain: VAS= 4 /10 Comments: I previously evaluated her in the office. Symptoms are unchanged. Ame was interviewed and the medical record was reviewed.? There were no medical, pharmacologic, radiographic or other structural contraindications to attempting fluoroscopically guided Lumbar epidural steroid injection.? Risks, potential side effects, indications, and potential benefits of the procedure were reviewed with Ame.? Questions and concerns were addressed.? After it was clear that Ame was fully informed about the procedure, the printed consent form was signed by the patient and myself.? Ame was placed in the prone position on the fluoroscopy table and automated blood pressure cuff and pulse oximeter applied. The skin entry point for entering/approaching the epidural space for the lumbar epidural steroid injection was marked. Following thorough chlorhexadine preparation of the skin and draping and 1% lidocaine infiltration of the skin entry point and subcutaneous tissues, an 18 gauge Touhy needle was placed and advanced under fluoroscopic guidance and with loss of resistance technique into the L4-L5 epidural space. Needle tip placement and depth were aided and confirmed by fluoroscopy. There was no paresthesia or return of blood or CSF through the needle. 1 mls of Omnipaque 240 was injected with clear epidural spread confirmed with fluoroscopy. 80 mg of Depo-Medrol was? injected. This was followed by 1 ml of preservative-free normal saline to flush the steroid out of the needle. There was no unusual discomfort expressed by Ame. The needle was withdrawn without difficulty. (49 mls of Omnipaque was wasted) Ame was observed and was without hemodynamic, neurologic, or allergic reactions.? Fluoroscopic images were digitally archived. Sameers vital signs were stable throughout the procedure and were as recorded in nursing records. Follow up plans and appointments were discussed with Ame. Post procedure instruction was given as documented in nursing records and having met discharge criteria Ame was [facility] from the [facility]. COMMENTS: No apparent complications. Post-procedure pain: VAS= 0/10. Ame to contact [facility] as needed. If at least 50% improvement in pain and/or function for at least 3 months is achieved, this procedure can be repeated. I personally performed this entire procedure. TI NOYOLA DO, MPH ABPMR-subspecialty board certification in Pain Medicine [facility] Coding Conscious Sedation used for procedure: No CPT Codes: Inj Spine L/S w/Imaging - [id number] ([id number] ~G) Additional Codes: Date of Service ([id number]) Date of service: 03/22/25
[2025-03-22] MEDS: Epidural Tray 1 EACH MC (12:23)
[2025-03-22] MEDS: Omnipaque 240 MG/ML 50 ML BTL IJ (12:23)
[2025-03-22] MEDS: methylPREDNISolone ACETATE 80 MG/ML VIAL IJ (12:23)
== END 2025-03-22 11:54 | disposition home or self-care (01) ==
LOC: PC 11:53
PROVIDERS: PCP Family Medicine; Visit Provider Preventive Medicine Occupational Medicine
DX: M54.16 Radiculopathy, lumbar region (principal)
CPT/HCPCS: 62323; 72100; J1010; Q9967

== ENCOUNTER 2025-05-17 11:46 | Outpatient (CLI) | payer BC, MEDICAID, SELFPAY ==
[2025-05-17] VITALS (14 sets, daily range): BP systolic 118–142; BP diastolic 72–105; PULSE 53–78; RESP 11–18; TEMP 36.4; O2SAT 95–100
[2025-05-17] MEDS: Midazolam 2 MG/2 ML VIAL IVP (13:25)
[2025-05-17] MEDS: fentaNYL 100 MCG/2 ML VIAL IJ ×2 (13:25→13:50)
[2025-05-17] MEDS: Lactated Ringers 500 ML 30 ML IV (13:41)
--- NOTE | 2025-05-17 14:07 | DI.RAD_ITS ---
Exam(s) XR PAIN CLINIC LUMBAR SP 2V EXAM: XR PAIN CLINIC LUMBAR SP 2V CLINICAL HISTORY: Dx: Lumbar Spondylosis. TECHNIQUE: Fluoroscopy was provided for the referring physician for guidance with performing pain clinic injection procedure. COMPARISON: No exams were available for comparison FINDINGS: Please see procedure note for details. Fluoro time: 57.3 seconds RADIATION DOSE DELIVERED: sejal Oliver=9.77 mGy
[2025-05-17] MEDS: methylPREDNISolone ACETATE 40 MG/ML VIAL IJ (14:11)
[2025-05-17] MEDS: Bupivacaine 0.5% Pres-Free 10 ML VIAL IJ (14:11)
[2025-05-17] MEDS: Lidocaine 2% Multi-Dose 20 ML VIAL IJ (14:12)
[2025-05-17] MEDS: Nerve Block Tray 1 EACH MC (14:17)
--- NOTE | 2025-05-21 07:50 | PDOC.PAIN ---
Date of service: 05/17/25 Time of Service: 12:00 Pain Managment Procedure Note Procedure Note Procedure Note: PROCEDURE NOTE BILATERAL LUMBAR RADIOFREQUENCY ABLATION Date of Service: May 17, 2025 Patient:Ame Gamez? Provider:? Ti Noyola DO, MPH Ame Roman [facility] Bilateral Lumbar Radiofrequency Ablation with the [facility].? Pre Operative Diagnosis: Lumbosacral Spondylosis without Myelopathy ICD-10 M47.816 Post Operative Diagnosis: Same Pre procedure pain; VAS= 6/10 Comments: She last had this procedure on 08/10/2024 and having over 6 months of over 50% pain relief. Her pain has returned. PROCEDURE: Radiofrequency Ablation of medial branches - bilateral L3, L4, L5 and lateral branches of bilateral S1. Ame?was interviewed and the medical record was reviewed.? There were no medical, pharmacologic, radiographic or other structural contraindications to attempting fluoroscopically guided BILATERAL Lumbar Radiofrequency Ablation.?Risks and expected side effects as well as potential benefit of the procedure were reviewed with Ame, and the patient's voiced concerns were addressed.? The printed consent form was signed.? Standard time-out procedure was performed. Ame was brought into the fluoroscopy suite and positioned into the prone position on the fluoroscopy table and allowed to adjust to a position of comfort. A grounding pad was placed on the left abdomen. The sterile field was prepared using chlorhexidine preparation of the skin and sterile draping. Local anesthesia superficial and deep was provided by local infiltration of 2% lidocaine. A 17g 100 mm radiofrequency introducer needle was placed to the planned anatomic targets guided with intermittent fluoroscopy with a perpendicular approach to terminally place at the junction of the superior articular process and the transverse process of the bilateral L4, L5, the base of the sacral ala on the bilateral for the L5 medial branch nerve and the area between base of the sacral ala to the S1 foramen bilaterally. The stylets were removed and radiofrequency probes with a 4mm active tip were then inserted. Needle tip position of the probes was verified in the AP, oblique, and lateral views. At each site, the medial branch nerve was stimulated at 2 Hz to a maximum 1-2 volts determined to finalize safe needle and electrode placement. The patient was awake and responsive during this portion of the procedure. Each target was anesthetized with 1-2 mL of 2 % Lidocaine for anesthesia for lesioning and then each target was lesioned at 80 degrees Celsius for 2 minutes and 30 seconds. Tissue impedances were noted to be between 250 and 500 Ohms. Next I injected 1/4 cc of Depo-Medrol followed by 1 cc of 0.5% bupivacaine at each segmental sensory nerve. There was no unusual discomfort expressed by Ame. The needles were withdrawn without difficulty and bandages placed over the needle placement sites, the patient was observed and was without hemodynamic, neurologic, or allergic reactions. Fluoroscopic images were digitally archived. POST PROCEDURE EVALUATION: IMPRESSION: 1. Summary of procedure. Medication given is documented in the MAR. 2. Follow up plan: Ame to contact [facility] as needed.?This procedure may be repeated if the patient achieves at least 50% improvement in pain/function for at least 6 months. 3. Estimated Blood Loss: <5 mls 4. Fluoroscopy time: Documented in the EMR. Follow up plans and appointments were discussed with the Ame. Post procedure instruction was given as documented in nursing documentation and having met discharge criteria, Ame was discharged from the [facility]. This advanced procedure uses cooled radiofrequency energy to safely target the sensory nerves responsible for sending pain signals.1 A radiofrequency generator transmits a small current of Radiofrequency energy through an insulated electrode, or probe, placed within tissue. Ionic heating, produced by the friction of charged molecules, thermally deactivates the nerves responsible for sending pain signals to the brain. Radiofrequency energy heats and cools the tissue at the site of pain. Unlike other Radiofrequency procedures, Coolief circulates water through the device while heating nervous tissue to create a larger treatment area, increasing the opportunity to help with pain. This combination targets the pain-transmitting nerves without excessive heating, leading to pain relief. COMMENTS: No apparent complications. Post-procedure pain: VAS= 0/10. I personally completed the entire procedure. TI NOYOLA DO, MPH ABPM&R - Subspecialty board certification in Pain Medicine [facility] Coding Conscious Sedation used for procedure: Yes CPT Codes: Single Facet Joint, Lumbar/Sacral *BILATERAL* - [id number] ([id number]~G) Single Facet Joint, Lumbar/Sacral cool each add'l - 41012O ([id number]~G) Additional Codes: Date of Service (19838) Date of service: 05/17/25 Diagnoses: Lumbar spondylosis without myelopathy
== END 2025-05-17 11:47 | disposition home or self-care (01) ==
LOC: PC 11:47
PROVIDERS: PCP Family Medicine; Visit Provider Preventive Medicine Occupational Medicine
DX: M47.816 Spondylosis without myelopathy or radiculopathy, lumbar region (principal)
CPT/HCPCS: 64635; 64636; 72100; J0665; J1010; J2003; J2250; J3010